=== PATIENT | male | born 2000 | race Caucasian/White ===

== ENCOUNTER 2025-02-13 13:03 | Emergency (ER) | payer BC ==
[2025-02-13] MEDS ORDERED: Ibuprofen 800 MG TAB ONE (15:04)
== END 2025-02-13 15:38 | disposition home or self-care (01) ==
LOC: ERS 13:03
DX: J10.1 Influenza due to other identified influenza virus with other respiratory manifestations (principal)
CPT/HCPCS: 71045; 87428